=== PATIENT | female | born 1970 | race Caucasian/White ===

== ENCOUNTER 2020-09-11 11:02 | Emergency (ER) | payer BC, OTHER ==
[~2020-09-11] VITALS: Ht 167.6 cm; Wt 90.7 kg
[~2020-09-11 11:02] MED LIST: BUPROPION HCL200 MG PO; LIDOCAINE700 MG TOP; PREDNISONE20 MG PO; PROVENTIL HFA6.7 GM INH; SPACE CHAMBER1 EACH MC; VITAMIN D250 MCG PO; VOLTAREN100 GM TOP
[2020-09-11] MEDS ORDERED: BUPROPION HCL200 M1 PO (11:28)
[2020-09-11] MEDS ORDERED: GABAPENTIN300 MG PO (11:29)
[2020-09-11] MEDS ORDERED: AMBIEN10 MG PO (11:30)
[2020-09-11] MEDS ORDERED: EC-NAPROSYN500 MG PO (11:50)
== END 2020-09-11 11:58 | disposition home or self-care (01) ==
LOC: ED 11:02
DX: S93.401A Sprain of unspecified ligament of right ankle, initial encounter (principal); W10.8XXA Fall (on) (from) other stairs and steps, initial encounter; F17.200 Nicotine dependence, unspecified, uncomplicated; Z88.2 Allergy status to sulfonamides; Z79.899 Other long term (current) drug therapy
CPT/HCPCS: 73610; 99283-25; A9270

== ENCOUNTER 2020-11-19 11:40 | Day surgery (SDC) | payer BC, OTHER ==
[~2020-11-19] VITALS: Ht 167.6 cm; Wt 90.9 kg
[~2020-11-19 11:40] MED LIST changes: +AMBIEN10 MG PO; +BUPROPION HCL200 M1 PO; +EC-NAPROSYN500 MG PO; +GABAPENTIN300 MG PO
--- NOTE | 2020-11-19 13:45 | NUR ---
11/19/20 1345 Fara Infante 1340- PT ARRIVES TO PACU ALERT AND ORIENTED. PT REPORTS NO PAIN OR NAUSEA. RESP EVEN AND UNLABORED. OXYGEN SAT HIGH 90'S TO 100% ON 2L VIA NC.
--- NOTE | 2020-11-21 16:02 | OR ---
[facility] [address] [place], [place] [address] Signed DATE OF OPERATION: 11/19/2020 SURGEON: Misty Puentes MD PREOPERATIVE DIAGNOSIS: Colon screening. POSTOPERATIVE DIAGNOSIS: Sigmoid diverticulosis. PROCEDURE: Total colonoscopy of cecum. ANESTHESIA: Intravenous sedation, fentanyl 100 mcg and Versed 7 mg. INDICATIONS: This is a 50-year-old white woman, who is a patient of Dr. Mayo and RAMA Leyva. She has been referred for screening colonoscopy based on her age of 50 years. She has no symptoms of bleeding, diarrhea or constipation and has no family history of colon cancer. She has been vaccinated for COVID-19. She has a negative preoperative COVID-19 test. She is admitted at this time to undergo colonoscopy. She understands the risks of bleeding, infection, and perforation. FINDINGS: The prep was excellent. Complete colonoscopy was undertaken of the cecum without question. She had no evidence of polyps or colitis but did have scattered diverticula of the sigmoid. DESCRIPTION OF PROCEDURE: The patient was brought to the endoscopy suite and placed in lateral decubitus position given intravenous sedation to the point of slurred speech and nystagmus. Digital rectal examination was normal. An Olympus video colonoscope was passed in the rectum and manipulated throughout the colon noting it ultimately passed to the cecum. Ileocecal valve and appendiceal orifice were well identified. The scope was withdrawn from that point and careful inspection upon withdrawal of scope showed no sign of abnormality until the sigmoid where there were few scattered diverticula. They were rare and uncommon indeed. Retroflexed view of the rectum was normal. The scope was removed and the patient was taken to the Electronically Signed By: MISTY PUENTES MD 11/21/20 1602 PATIENT NAME: FATMATA LUI OPERATIVE REPORT DATE OF : 66 REPORT #: [id number] PHYSICIAN: MISTY PUENTES MD PCP: MIREYA NEWBY MD REPORT IS CONFIDENTIAL AND NOT TO BE RELEASED WITHOUT AUTHORIZATION [facility] [address] [place], [place] [address] Signed recovery room in good condition. CONCLUDING DIAGNOSIS: Minimal diverticular changes of the sigmoid, otherwise normal. PLAN: Recommend high-fiber diet and repeat colonoscopy in 10 years based on current clinical guidelines. MD SB Dukes/MODL /[id number] cc: JULIO Leyva DO Copies: MANUELA MAYO DO ~ Electronically Signed By: MISTY PUENTES MD 11/21/20 1602 PATIENT NAME: FATMATA LUI OPERATIVE REPORT DATE OF : 66 REPORT #: [id number] PHYSICIAN: MISTY PUENTES MD PCP: MIREYA NEWBY MD REPORT IS CONFIDENTIAL AND NOT TO BE RELEASED WITHOUT AUTHORIZATION
== END 2020-11-19 14:35 | disposition home or self-care (01) ==
LOC: OPS 11:40 → DS 11:45 → OPS 13:00
PROVIDERS: ATTEND Surgery
PROC: 0DJD8ZZ Inspection of Lower Intestinal Tract, Via Natural or Artificial Opening Endoscopic (ICD-10-PCS; principal; 2020-11-19 13:00)
DX: Z12.11 Encounter for screening for malignant neoplasm of colon (principal); K57.30 Diverticulosis of large intestine without perforation or abscess without bleeding; Z88.2 Allergy status to sulfonamides; Z87.891 Personal history of nicotine dependence; Z98.890 Other specified postprocedural states
CPT/HCPCS: J2250; J3010; J7121

== ENCOUNTER 2021-05-15 08:18 | Emergency (ER) | payer BC, OTHER ==
[~2021-05-15] VITALS: Ht 167.6 cm; Wt 89.7 kg
--- OUTSIDE RECORDS SUMMARY | 2021-05-15 08:22 | XMS ---
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 Madhavi has no Care Guidelines for this patient. Afsaneh VISIT COUNT (12 MO.) 2 KELLY Daugherty TOTAL 2 NOTE: Visits indicate total known visits. ED/UCC VISIT TRACKING (12 MO.) 05/15/2021 08:20 KELLY Blood OR TYPE: Emergency COMPLAINT: - LEFT EYE SWOLLEN 09/11/2020 11:02 KELLY Blood OR TYPE: Emergency COMPLAINT: - FALL DIAGNOSES: - Nicotine dependence, unspecified, uncomplicated - Sprain of unspecified ligament of right ankle, initial encounter - Pain in right ankle and joints of right foot - Other fci (current) drug therapy - Fall (on) (from) other stairs and steps, initial encounter - Allergy status to sulfonamides INPATIENT VISIT TRACKING (12 MO.) No inpatient visits to display in this time frame [email or web address]
[2021-05-15] MEDS ORDERED: AMOXICILLIN500 MG PO (08:45)
== END 2021-05-15 08:53 | disposition home or self-care (01) ==
LOC: ED 08:18
DX: H00.014 Hordeolum externum left upper eyelid (principal); Z88.2 Allergy status to sulfonamides; Z79.899 Other long term (current) drug therapy
CPT/HCPCS: 99283

== ENCOUNTER 2022-05-02 13:59 | Observation (INO) | payer OTHER ==
[~2022-05-02] VITALS: Ht 167.6 cm; Wt 94.5 kg
[~2022-05-02 13:59] MED LIST changes: +AMOXICILLIN500 MG PO
--- OUTSIDE RECORDS SUMMARY | 2022-05-02 14:02 | XMS ---
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 EReyna VISIT COUNT (12 MO.) 2 KELLY Daugherty TOTAL 2 NOTE: Visits indicate total known visits. ED/UCC VISIT TRACKING (12 MO.) 05/02/2022 14:00 KELLY Blood OR TYPE: Emergency COMPLAINT: - ABD PAIN, VOMITING 05/15/2021 08:20 KELLY Blood OR TYPE: Emergency COMPLAINT: - LEFT EYE SWOLLEN DIAGNOSES: - Other usp (current) drug therapy - Ocular pain, left eye - Allergy status to sulfonamides - Hordeolum externum left upper eyelid INPATIENT VISIT TRACKING (12 MO.) No inpatient visits to display in this time frame [email or web address]
--- NOTE | 2022-05-02 19:27 | NUR ---
REPORT RECEIVED FROM EMERGENCY DEPARTMENT RN. PT TO OR FROM ED.
--- NOTE | 2022-05-02 21:15 | NUR ---
05/02/222114 Fara Infante 2109- PT ARRIVES TO PACU NONAROUSABLE TO STIMULI WITH AN OPA IN PLACE. RESP EVEN AND UNLABORED. OXYGEN SAT HIGH 90'S TO 100% ON 6L VIA MASK. 2112- PT IS ABLE TO OPEN HER EYES. PT IS NOT FOLLOWING COMMANDS TO OPEN HER MOUTH TO REMOVE THE OPA. OPA LEFT IN PLACE. 2113- PT IS ABLE TO OPEN HER MOUTH AND OPA REMOVED. OXYGEN MASK REPLACED AT 6L.
--- NOTE | 2022-05-02 22:10 | NUR ---
PT TO FLOOR VIA STRETCHER WITH PACU NURSE. REPORT RECEIVED. 3PA FROM GUERNEY TO BED. PT ALERT AND ORIENTED. DROWSY BUT AWAKENS EASILY. REPORTS ABD PAIN IS TOLERABLE 4/10. PT DENIES NAUSEA. LAP SITES X 4 WITH SUTURES AND DERMABOND INTACT. NO DRAIANGE. BOWEL TONES ACTIVE. ABD SOFT. IVF INFUSING PER ORDER. SCD'S AND CPOX IN PLACE. SIPS OF WATER GIVEN. PT ORIENTED TO ROOM AND NURSE CALL LIGHT. NO QUESTIONS OR CONCERNS AT THIS TIME. CALL LIGHT IN REACH.
--- NOTE | 2022-05-02 23:57 | NUR ---
CALL LIGHT ANSWERED. PT UP TO BR WITH MINIMAL SBA TO VOID 500 ML CLEAR YELLOW URINE. GAIT STEADY. BACK TO BED, JENNIFER WELL. REPORTS PAIN IS TOLERABLE. DENIES NAUSEA. POST OP VS WNL. DENIES NEEDS.
--- NOTE | 2022-05-03 00:40 | NUR ---
CALL LIGHT ANSWERED. IV PUMP ALARMING. ISSUE RESOLVED. PT REPORTS SHE IS RESTING WELL, DENIES NEEDS. POST OP VS WNL.
--- NOTE | 2022-05-03 01:56 | NUR ---
IV PUMP ALARMING. ISSUE RESOLVED. PT C/O BEING TOO WARM, EXTRA BLANKETS REMOVED. VS AND I&O COMPLETE. PT REPORTS PAIN IS TOLERABLE. DENIES NAUSEA. ABD LAP SITES X 4 WELL APPROXIMATED WITH NATALIE INTACT. NO REDNESS OR DRAINAGE NOTED. ABD SOFT. BOWEL TONES ACTIVE. PT DENIES NEEDS AT THIS TIME. CALL LIGHT IN REACH.
--- NOTE | 2022-05-03 04:12 | NUR ---
CALL LIGHT ANSWERED. PT UP TO BR TO VOID WITH MINIMAL SBA. GAIT STEADY. BACK TO BED, JENNIFER WELL. DENIES NAUSEA. REPORTS ABD PAIN TOLERABLE /10. FRESH WATER PROVIDED. NO FURTHER NEEDS.
--- NOTE | 2022-05-03 06:07 | NUR ---
PT RESTING IN BED WITH EYES CLOSED. AWAKENS EASILY. VS AND I&O COMPLETE. PT REPORTS PAIN IS TOLERABLE. DENIES NEEDS AT THIS TIME. CALL LIGHT IN REACH.
--- NOTE | 2022-05-03 06:59 | NUR ---
PT UP TO BR WITH MINIMAL SBA TO VOID. BACK TO BED, JENNIFER WELL. PT REPORTS PAIN "CREEPING UP". PRN FOR PAIN ADMIN PER EMAR WITH PUDDING AND CRACKERS.
--- NOTE | 2022-05-03 07:47 | NUR ---
Pt in bed, room air, scds in place, IVF infusing, plesant, alert and cooperative, watiging for MD to be dc home. sujatha c/o pain
--- NOTE | 2022-05-03 08:16 | NUR ---
ON ROOM AIR, ALERT AND ORINETED, NO C/O ABD PAIN. CLEAR LUNGS, REG RHTYTHM AND RATE. ABD R 3 OPEN TO AIR LAP SITES AND UMBILICAL AREA, NORMAL SKIN COLORING, DANILO, DENIES PASSING GAS, TOLERATING LIQUIDS WELL, NO EMESIS. SLIGHT TRACE EDEMA R HAND AND R LUZ AND FOOT, SCDS INPLACE. IVF INFUSING RAC. CALL LIGHT AND FLUDIS AT BEDSIDE
--- NOTE | 2022-05-03 10:30 | NUR ---
IN ROOM, IVF INFUSING, TOLERATED MEAL WELL, NO EMESIS, FAMILY IN ROOM
[2022-05-03] MEDS ORDERED: WELLBUTRIN XL300 MG PO (11:05)
--- NOTE | 2022-05-03 11:26 | NUR ---
pt c/o 5/10 abd pain, increasing burping, denies passing rectal flatus. alert and oriented, repositions self in bed, medicated with 1 [place], will call if she needs a second dose in half an hour. ambulated in room earlier, SCDS in place. family at bedside.
[2022-05-03] MEDS ORDERED: METHYLFOLATE1 EACH PO (11:40)
[2022-05-03] MEDS ORDERED: VITAMIN B-121000 MC4 SL (11:40)
[2022-05-03] MEDS ORDERED: ESTROVEN MENOP1 EACH PO (11:41)
--- NOTE | 2022-05-03 11:41 | NUR ---
MED REC COMPLETE
--- NOTE | 2022-05-03 11:51 | NUR ---
Still c/o abd pain 4/10 abd pain, medicated with second [place] tab.
[2022-05-03] MEDS ORDERED: HYDROCODON-ACE1 EA10 PO (12:46)
--- NOTE | 2022-05-03 13:10 | NUR ---
dc instructions verbal and written given, and Rx for [place], stated understanding. SL RAC 20G dc'd tip intact.
--- NOTE | 2022-05-03 13:25 | NUR ---
pt dc'd home via w/x to private car. dc with written instrutions and rx, and all belongings. no c/o pain, was medicated earlier, was comofrtable, passing rectal gas, ambulated hallways prior to dc and tolerated well.
--- NOTE | 2022-05-06 11:07 | OR ---
[facility] [address] [place], [place] [address] Signed DATE OF OPERATION: 05/02/2022 SURGEON: Nyasia Kemp MD PREOPERATIVE DIAGNOSIS: Acute cholecystitis. POSTOPERATIVE DIAGNOSES: Acute cholecystitis. PROCEDURE PERFORMED: Laparoscopic cholecystectomy. ANESTHESIOLOGIST: Parvin Aparicio CRNA ANESTHESIA: General endotracheal anesthesia. ESTIMATED BLOOD LOSS: 25 mL. SPECIMENS: Gallbladder. COMPLICATIONS: None. DISPOSITION: Stable to post anesthesia care unit. INDICATIONS FOR PROCEDURE: The patient is a 51-year-old female with chronic symptomatic cholelithiasis, who presented to the emergency department with acute cholecystitis. Plan was made to admit the patient and start antibiotic therapy and also to proceed to the operating room for laparoscopic cholecystectomy. The risks and benefits of procedure was explained to the patient including but not limited to bleeding, infection, open procedure, injury to biliary ductal structures, need and drainage and reconstruction, biloma/seroma/hematoma/abscess, need for further procedures including ERCP, risk of anesthesia, DVT, PE, DE, stroke, and . The patient understood risks and signed Electronically Signed By: NYASIA KEMP MD 05/06/22 1107 PATIENT NAME: FATMATA LUI OPERATIVE REPORT DATE OF : 66 REPORT #: [id number] PHYSICIAN: NYASIA KEMP MD PCP: RENAN PHELAN PAC REPORT IS CONFIDENTIAL AND NOT TO BE RELEASED WITHOUT AUTHORIZATION [facility] [address] [place], [place] [address] Signed informed consent. PROCEDURE IN DETAIL: After transportation to the operating room, general anesthesia was initiated. The patient was prepped and draped in sterile fashion. A 10 mm incision was made just above the umbilicus and taken down to transversalis fascia. Fascia was incised and entry was made into the peritoneal cavity. Pneumoperitoneum was established and a laparoscope was introduced. The fundus of the gallbladder was retracted cephalad. The infundibulum was retracted laterally to expose the triangle of [place]. The peritoneal adhesions to the gallbladder were dissected free. Cystic duct and artery were identified, dissected, clipped, and transected. A gallbladder was resected off the fossa using electrocautery. Hemostasis was maintained. An EndoCatch bag was used to extrude the gallbladder from the peritoneal cavity. Ligatures were inspected and noted to be intact. All ports were then removed and pneumoperitoneum released. Fascia was approximated using 0 Vicryl suture and skin was approximated using 4-0 Monocryl suture. All lab and sponge counts were correct. The patient was transferred in stable condition to post anesthesia care unit. MD TE Khan/MODL /[id number] Copies: ~ Electronically Signed By: NYASIA KEMP MD 05/06/22 1107 PATIENT NAME: FATMATA LUI OPERATIVE REPORT DATE OF : 66 REPORT #: [id number] PHYSICIAN: NYASIA KEMP MD PCP: RENAN PHELAN PAC REPORT IS CONFIDENTIAL AND NOT TO BE RELEASED WITHOUT AUTHORIZATION
== END 2022-05-03 13:25 | disposition home or self-care (01) ==
LOC: ED 13:59 → MS 14:01
PROVIDERS: ADMIT Surgery; ATTEND Surgery
PROC: 0FT44ZZ Resection of Gallbladder, Percutaneous Endoscopic Approach (ICD-10-PCS; principal; 2022-05-02 19:37)
DX: K80.12 Calculus of gallbladder with acute and chronic cholecystitis without obstruction (principal); J45.909 Unspecified asthma, uncomplicated; Z20.822 Contact with and (suspected) exposure to COVID-19; Z88.2 Allergy status to sulfonamides
CPT/HCPCS: 36415; 76705; 80053; 81001; 83690; 84703; 85025; C9803; G0378; J0131; J1100; J1170; J1885; J2001; J2405; J2543; J2704; J3480; J7030; J7121; U0003